=== PATIENT | male | born 1945 | race Caucasian/White ===

== ENCOUNTER 2021-02-26 11:34 | Outpatient (CLI) | payer MEDICARE, BC ==
[2021-02-26 14:37] LABS: Hemoglobin 13.4 g/dL (13.5-17.5); Mean Corpuscular HGB CONC 33.3 g/dL (32.0-36.0); Mean Corpuscular Volume 93.1 fl (81.2-95.1); Mean Platelet Volume 11.6 fl (7.4-10.4); Platelet Count 177 10x3/uL (150-450); RBC Distribution Width 12.5 % (11.5-14.5); Red Blood Cell (RBC) Count 4.32 10x6/uL (4.32-5.72); White Blood Cell (WBC) Count 6.9 10x3/uL (3.5-10.5)
[2021-02-26 14:54] LABS: Prothrombin Time 10.7 sec (9.5-12.1)
[2021-02-26 15:25] LABS: Anion Gap 14 mmol/L (10-20); BUN (Urea Nitrogen) 22 mg/dL (8.4-25.7); Calc. Creatinine Clearance 0 mL/min (70-130); Carbon Dioxide 25 mmol/L (23-31); Chloride 106 mmol/L (98-107); Glucose 86 mg/dL (83-110); Potassium 4.9 mmol/L (3.5-5.1); Sodium 140 mmol/L (136-145)
[2021-02-26 20:28] LABS: SARS-CoV-2 PCR by NAA Not Detected (NotDetected)
== END 2021-02-26 11:35 | disposition home or self-care (01) ==
LOC: LABBT 11:34
PROVIDERS: ATTEND Internal Medicine Cardiovascular Disease
DX: Z01.812 Encounter for preprocedural laboratory examination (principal); Z20.822 Contact with and (suspected) exposure to COVID-19
CPT/HCPCS: 80048; 85027; 85610; U0003; U0005

== ENCOUNTER 2021-03-01 06:40 | Day surgery (SDC) | payer MEDICARE, BC ==
[2021-02-27 15:13] VITALS: BMI 28.2
[2021-03-01] MEDS ORDERED: Lidocaine 1% (PF) 30 ML VIAL ONE (08:59)
[2021-03-01] MEDS ORDERED: Heparin 10,000 UNITS/ 10 ML VIAL ONE (08:59)
[2021-03-01] MEDS ORDERED: Heparin 25,000 units/D5W 0 ML ONE (08:59)
[2021-03-01] MEDS ORDERED: Propofol 1,000 MG/100 ML VIAL IV ONE (09:38)
[2021-03-01] MEDS ORDERED: Fentanyl 100 MCG/2 ML VIAL ONE (09:38)
[2021-03-01] MEDS ORDERED: PROPOFOL 200 MG/20 ML VIAL ONE (10:00)
[2021-03-01] MEDS ORDERED: Lidocaine 1% PF 5 ML VIAL ONE (10:00)
[2021-03-01] MEDS ORDERED: hydrALAZINE 20 MG/ML VIAL ONE (15:41)
== END 2021-03-01 16:49 | disposition home or self-care (01) ==
LOC: SDC 06:40
PROVIDERS: ATTEND Internal Medicine Cardiovascular Disease
PROC: 02583ZZ Destruction of Conduction Mechanism, Percutaneous Approach (ICD-10-PCS; principal; 2021-03-01)
PROC: 02K83ZZ Map Conduction Mechanism, Percutaneous Approach (ICD-10-PCS; 2021-03-01)
PROC: 4A023FZ Measurement of Cardiac Rhythm, Percutaneous Approach (ICD-10-PCS; 2021-03-01)
PROC: 4A0234Z Measurement of Cardiac Electrical Activity, Percutaneous Approach (ICD-10-PCS; 2021-03-01)
DX: I47.1 Supraventricular tachycardia (principal); I48.3 Typical atrial flutter; I48.0 Paroxysmal atrial fibrillation; E78.5 Hyperlipidemia, unspecified; K21.9 Gastro-esophageal reflux disease without esophagitis; M06.9 Rheumatoid arthritis, unspecified; E03.9 Hypothyroidism, unspecified; I44.0 Atrioventricular block, first degree; Z86.73 Personal history of transient ischemic attack (TIA), and cerebral infarction without residual deficits; Z79.82 Long term (current) use of aspirin; Z79.899 Other long term (current) drug therapy; Z88.7 Allergy status to serum and vaccine
CPT/HCPCS: 93005; 93613; 93621; 93653; C1731; C1732; C1894; C2630; J0360; J1644; J2001; J2704; J3010

== ENCOUNTER 2021-04-03 11:28 | Outpatient (CLI) | payer MEDICARE, BC ==
[2021-04-03 12:47] LABS: Hemoglobin 14.1 g/dL (13.5-17.5); Mean Corpuscular HGB CONC 33.7 g/dL (32.0-36.0); Mean Corpuscular Hemoglobin 30.5 pg (27.0-33.0); Mean Corpuscular Volume 90.5 fl (81.2-95.1); Mean Platelet Volume 10.8 fl (7.4-10.4); Platelet Count 194 10x3/uL (150-450); RBC Distribution Width 12.7 % (11.5-14.5); Red Blood Cell (RBC) Count 4.62 10x6/uL (4.32-5.72)
[2021-04-03 12:58] LABS: Prothrombin Time 11.2 sec (9.5-12.1)
[2021-04-03 13:02] LABS: Anion Gap 16 mmol/L (10-20); BUN (Urea Nitrogen) 21 mg/dL (8.4-25.7); Calc. Creatinine Clearance 0 mL/min (70-130); Calcium 9.3 mg/dL (7.8-10.44); Carbon Dioxide 23 mmol/L (23-31); Chloride 107 mmol/L (98-107); Glucose 100 mg/dL (83-110); Potassium 4.3 mmol/L (3.5-5.1); Sodium 142 mmol/L (136-145)
[2021-04-03 23:29] LABS: SARS-CoV-2 PCR by NAA Not Detected (NotDetected)
== END 2021-04-03 11:29 | disposition home or self-care (01) ==
LOC: LABBT 11:28
PROVIDERS: ATTEND Internal Medicine Cardiovascular Disease
DX: Z01.812 Encounter for preprocedural laboratory examination (principal); Z20.822 Contact with and (suspected) exposure to COVID-19
CPT/HCPCS: 80048; 85027; 85610; U0003; U0005

== ENCOUNTER 2021-04-06 08:39 | Outpatient (CLI) | payer MEDICARE, BC ==
[2021-04-07 19:16] LABS: SARS-CoV-2 PCR by NAA Not Detected (NotDetected)
== END 2021-04-06 08:40 | disposition home or self-care (01) ==
LOC: LABBT 08:39
PROVIDERS: ATTEND Internal Medicine Cardiovascular Disease
DX: Z01.812 Encounter for preprocedural laboratory examination (principal); Z20.822 Contact with and (suspected) exposure to COVID-19
CPT/HCPCS: U0003; U0005

== ENCOUNTER 2021-04-10 06:10 | Day surgery (SDC) | payer MEDICARE, BC ==
[2021-04-09 08:42] VITALS: BMI 28.8
[2021-04-10] MEDS ORDERED: Heparin 25,000 units/D5W 500 ML ONE (06:51)
[2021-04-10] MEDS ORDERED: Protamine Sulfate 50 MG/5 ML VIAL ONE (06:51)
[2021-04-10] MEDS ORDERED: Heparin 10,000 UNITS/ 10 ML VIAL ONE ×2 (06:51→14:12)
[2021-04-10] MEDS ORDERED: Fentanyl 100 MCG/2 ML VIAL ONE (07:14)
[2021-04-10] MEDS ORDERED: SUGAMMADEX SODIUM 200 MG/2 ML VIAL ONE (07:14)
[2021-04-10] MEDS ORDERED: Phenylephrine 10 MG/ML VIAL ONE ×2 (07:29→07:55)
[2021-04-10] MEDS ORDERED: Dexamethasone 20 MG/5 ML VIAL ONE (07:55)
[2021-04-10] MEDS ORDERED: PROPOFOL 200 MG/20 ML VIAL ONE (07:55)
[2021-04-10] MEDS ORDERED: Ondansetron PF 4 MG/2 ML Vial ONE (07:55)
[2021-04-10] MEDS ORDERED: Rocuronium Bromide 10 MG/ML (10ML VIAL) ONE (07:55)
[2021-04-10] MEDS ORDERED: Lidocaine 1% PF 5 ML VIAL ONE (07:55)
[2021-04-10] MEDS ORDERED: Lidocaine 2% Jelly 5 ML TUBE ONE (08:03)
[2021-04-10] MEDS ORDERED: Isoproterenol 0.2 MG/1 ML AMP ONE (09:18)
== END 2021-04-10 15:30 | disposition home or self-care (01) ==
LOC: CCL 06:10
PROVIDERS: ATTEND Internal Medicine Cardiovascular Disease
PROC: B246ZZ4 Ultrasonography of Right and Left Heart, Transesophageal (ICD-10-PCS; principal; 2021-04-10)
PROC: B244ZZZ Ultrasonography of Right Heart (ICD-10-PCS; 2021-04-10)
PROC: 02583ZZ Destruction of Conduction Mechanism, Percutaneous Approach (ICD-10-PCS; 2021-04-10)
PROC: 02K83ZZ Map Conduction Mechanism, Percutaneous Approach (ICD-10-PCS; 2021-04-10)
PROC: 4A023FZ Measurement of Cardiac Rhythm, Percutaneous Approach (ICD-10-PCS; 2021-04-10)
PROC: 4A0234Z Measurement of Cardiac Electrical Activity, Percutaneous Approach (ICD-10-PCS; 2021-04-10)
DX: I48.0 Paroxysmal atrial fibrillation (principal); I48.3 Typical atrial flutter; I47.1 Supraventricular tachycardia; I51.7 Cardiomegaly; I34.0 Nonrheumatic mitral (valve) insufficiency; I44.0 Atrioventricular block, first degree; E78.5 Hyperlipidemia, unspecified; K21.9 Gastro-esophageal reflux disease without esophagitis; M06.9 Rheumatoid arthritis, unspecified; E03.9 Hypothyroidism, unspecified; Z86.73 Personal history of transient ischemic attack (TIA), and cerebral infarction without residual deficits; Z79.01 Long term (current) use of anticoagulants; Z79.899 Other long term (current) drug therapy; Z88.7 Allergy status to serum and vaccine
CPT/HCPCS: 85347; 93005; 93312; 93613; 93623; 93655; 93656; 93657; 93662; C1730; C1731; C1732; C1759; C1776; C1894; C2630; J1100; J1644; J2370; J2405; J2704; J2720; J3010

== ENCOUNTER 2022-08-08 09:01 | Day surgery (SDC) | payer MEDICARE, BC ==
[2022-08-02 11:53] LABS: Hemoglobin 12.5 g/dL (13.5-17.5); Mean Corpuscular HGB CONC 32.8 g/dL (32.0-36.0); Mean Corpuscular Hemoglobin 30.1 pg (27.0-33.0); Mean Corpuscular Volume 91.8 fl (81.2-95.1); Mean Platelet Volume 10.6 fl (7.4-10.4); Platelet Count 171 10x3/uL (150-450); RBC Distribution Width 13.2 % (11.5-14.5); Red Blood Cell (RBC) Count 4.15 10x6/uL (4.32-5.72); White Blood Cell (WBC) Count 6.4 10x3/uL (3.5-10.5)
[2022-08-02 12:10] LABS: Prothrombin Time 11.1 sec (9.5-12.1)
[2022-08-02 12:11] LABS: Anion Gap 16 mmol/L (10-20); BUN (Urea Nitrogen) 17 mg/dL (8.4-25.7); Calc. Creatinine Clearance 0 mL/min (70-130); Calcium 8.7 mg/dL (7.8-10.44); Carbon Dioxide 26 mmol/L (23-31); Chloride 104 mmol/L (98-107); Estimated GFR 59; Glucose 88 mg/dL (83-110); Potassium 3.5 mmol/L (3.5-5.1); Sodium 142 mmol/L (136-145)
[2022-08-06 15:05] VITALS: BMI 28.8
[2022-08-08] MEDS ORDERED: Heparin 25,000 units/D5W 0 ML ONE (10:11)
[2022-08-08] MEDS ORDERED: Heparin 10,000 UNITS/ 10 ML VIAL ONE ×2 (10:11→11:23)
[2022-08-08] MEDS ORDERED: Heparin 25,000 units/D5W 500 ML ONE (11:23)
[2022-08-08] MEDS ORDERED: Protamine Sulfate 50 MG/5 ML VIAL ONE (11:23)
[2022-08-08] MEDS ORDERED: fentaNYL 50 mcg/mL 1 mL Vial ONE (11:48)
[2022-08-08] MEDS ORDERED: SUGAMMADEX SODIUM 200 MG/2 ML VIAL ONE (11:48)
[2022-08-08] MEDS ORDERED: PROPOFOL 200 MG/20 ML VIAL ONE (11:53)
[2022-08-08] MEDS ORDERED: Ondansetron PF 4 MG/2 ML Vial ONE (11:53)
[2022-08-08] MEDS ORDERED: GLYCOPYRROLATE/PF 0.2 MG/ML VIAL ONE (11:53)
[2022-08-08] MEDS ORDERED: Rocuronium Bromide 10 MG/ML (10ML VIAL) ONE (11:53)
[2022-08-08] MEDS ORDERED: NEOSTIGMINE 3 MG/3 ML SYR 3 MG/3 ML SYRINGE ONE (11:53)
[2022-08-08] MEDS ORDERED: Isoproterenol 0.2 MG/1 ML AMP ONE (13:42)
== END 2022-08-08 17:47 | disposition home or self-care (01) ==
LOC: SDC 09:01
PROVIDERS: ATTEND Internal Medicine Cardiovascular Disease
PROC: B246ZZ4 Ultrasonography of Right and Left Heart, Transesophageal (ICD-10-PCS; principal; 2022-08-08)
PROC: 02583ZZ Destruction of Conduction Mechanism, Percutaneous Approach (ICD-10-PCS; 2022-08-08)
PROC: 02K83ZZ Map Conduction Mechanism, Percutaneous Approach (ICD-10-PCS; 2022-08-08)
PROC: 4A023FZ Measurement of Cardiac Rhythm, Percutaneous Approach (ICD-10-PCS; 2022-08-08)
PROC: 4A0234Z Measurement of Cardiac Electrical Activity, Percutaneous Approach (ICD-10-PCS; 2022-08-08)
DX: I48.0 Paroxysmal atrial fibrillation (principal); I48.4 Atypical atrial flutter; I08.1 Rheumatic disorders of both mitral and tricuspid valves; I44.0 Atrioventricular block, first degree; E78.5 Hyperlipidemia, unspecified; K21.9 Gastro-esophageal reflux disease without esophagitis; M06.9 Rheumatoid arthritis, unspecified; E03.9 Hypothyroidism, unspecified; Z86.73 Personal history of transient ischemic attack (TIA), and cerebral infarction without residual deficits; Z79.01 Long term (current) use of anticoagulants; Z79.890 Hormone replacement therapy; Z79.899 Other long term (current) drug therapy; Z88.7 Allergy status to serum and vaccine
CPT/HCPCS: 80048; 85027; 85610; 93005; 93312; 93655; 93656; 93657; J3010; 93010; J1644; J2405; J2704; J2720; J3490

== ENCOUNTER 2023-04-04 08:21 | Outpatient (CLI) | payer MEDICARE, BC | END 2023-04-04 08:22 | disposition home or self-care (01) | LOC: NM 08:21 | PROVIDERS: ATTEND Psychiatry & Neurology Neurology | DX: R29.818 Other symptoms and signs involving the nervous system (principal) | CPT/HCPCS: 78803; A9584 ×2 ==